=== PATIENT | male | born 1985 | race African-American/Black ===

== ENCOUNTER → 2019-06-02 | Outpatient (CLI) | payer BC ==
--- NOTE | 2019-06-02 17:36 | RAD ---
INDICATION: Leg swelling and pain COMPARISON: None. TECHNIQUE: Grayscale, color and doppler ultrasound images were obtained of the right lower extremity venous vasculature. RIGHT: No thrombus identified in the common femoral vein, femoral vein, popliteal vein or visualized calf veins. IMPRESSION: 1. No thrombus identified in deep venous system of right lower extremity. Electronically signed by: Jose Branch MD (06/02/2019 5:33 PM) [facility]
== END | disposition home or self-care (01) ==
LOC: US 16:42
PROVIDERS: ATTEND Physician Assistant
DX: M79.605 Pain in left leg (principal); R60.0 Localized edema
CPT/HCPCS: 93971